=== PATIENT | female | born 1965 | race Caucasian/White ===

== ENCOUNTER 2018-09-04 18:54 | Emergency (ER) | payer SELFPAY | END 2018-09-04 19:34 | disposition home or self-care (01) | LOC: JERFT 18:54 ==

== ENCOUNTER → 2020-08-31 | Day surgery (SDC) | payer OTHER | END | disposition home or self-care (01) | LOC: JRADIR 09:37 | PROVIDERS: ATTEND Family Medicine | PROC: 0G9G3ZX Drainage of Left Thyroid Gland Lobe, Percutaneous Approach, Diagnostic (ICD-10-PCS; principal; 2020-08-31) | DX: E04.1 Nontoxic single thyroid nodule (principal) | CPT/HCPCS: 10005; 76942; 88173; 88305-TC ==

== ENCOUNTER 2024-05-13 18:41 | Emergency (ER) | payer OTHER ==
[2024-05-13 18:56] VITALS: BP 163/98; PULSE 70; RESP 18; TEMP 98.7; BMI 29.0
[2024-05-13] MEDS: IBUPROFEN 600 MG TABLET (FP) PO ONE (20:58)
[2024-05-13] MEDS ORDERED: IBUPROFEN 600 MG TABLET (FP) PO ONE (20:59)
== END 2024-05-13 22:23 | disposition home or self-care (01) ==
LOC: JERFT 18:41
DX: S93.401A Sprain of unspecified ligament of right ankle, initial encounter (principal); X50.1XXA Overexertion from prolonged static or awkward postures, initial encounter
CPT/HCPCS: 73610-TC-RT-FY; 73630-TC-RT-FY; 99283-25